=== PATIENT | male | born 1995 | race Caucasian/White ===

== ENCOUNTER 2022-04-12 18:41 | Emergency (ER) | payer MEDICAID ==
[~2022-04-12] VITALS: Ht 170.2 cm; Wt 163.3 kg
[2022-04-12 19:24] VITALS: BP_SYST 141
--- NOTE | 2022-04-12 19:45 | NUR ---
MD RANGEL AT BEDSIDE EXAMINING PT.
--- NOTE | 2022-04-12 19:45 | NUR ---
COVID/INFLUENZA swabs collected and sent to lab.
[2022-04-12] MEDS ORDERED: OSEL75CA PO (20:24)
[2022-04-13 06:14] VITALS: BP_SYST 112
== END 2022-04-13 03:00 | disposition home or self-care (01) ==
LOC: SED 18:41
DX: J09.X2 Influenza due to identified novel influenza A virus with other respiratory manifestations (principal); R05.9 Cough, unspecified; R50.9 Fever, unspecified; R51.9 Headache, unspecified; F17.210 Nicotine dependence, cigarettes, uncomplicated; Z79.899 Other long term (current) drug therapy; Z20.822 Contact with and (suspected) exposure to COVID-19
CPT/HCPCS: 36415; 71045; 99284

== ENCOUNTER 2022-06-22 04:01 | Emergency (ER) | payer SELFPAY ==
[~2022-06-22] VITALS: Ht 172.7 cm; Wt 172.4 kg
[~2022-06-22 04:01] MED LIST: OSEL75CA PO
[2022-06-22 04:08] VITALS: BP_SYST 132
--- NOTE | 2022-06-22 04:11 | NUR ---
Patient to ER bed 8 to gown for evaluation. Side rails up. Report given to MICKIE PHOENIX(REG).
--- NOTE | 2022-06-22 04:24 | NUR ---
Xray performed at the bedside.Pt tolerated well.
--- NOTE | 2022-06-22 04:42 | NUR ---
ER at bedside examining patient.
[2022-06-22] MEDS ORDERED: PRED20TA PO (04:48)
[2022-06-22] MEDS ORDERED: PSEU120T57 PO (04:48)
[2022-06-22] MEDS ORDERED: BENZ100C92 PO (04:48)
[2022-06-22] MEDS ORDERED: AZIT-93 PO (04:48)
[2022-06-22] MEDS ORDERED: PROM5SYR PO (04:48)
[2022-06-22] MEDS ORDERED: ALBMDI INH (04:48)
--- NOTE | 2022-06-22 04:57 | NUR ---
Patient given written and verbal discharge instructions and verbalizes understanding. ER MD discussed with patient the results and treatment provided. Patient in stable condition. ID arm band removed. Rx of Ventolin,Azithromycin,Prednisone,Sudafed,Prometh-Codeine given. Patient educated on pain management and to follow up with PMD. Pain Scale 0/10. Opportunity for questions provided and answered. Medication side effect fact sheet provided.
[2022-06-22 04:59] VITALS: BP_SYST 139
== END 2022-06-22 04:57 | disposition home or self-care (01) ==
LOC: SED 04:01
DX: J20.9 Acute bronchitis, unspecified (principal); R05.9 Cough, unspecified; R09.81 Nasal congestion; F17.200 Nicotine dependence, unspecified, uncomplicated; Z79.899 Other long term (current) drug therapy; Z20.822 Contact with and (suspected) exposure to COVID-19
CPT/HCPCS: 36415; 71045; 99284